=== PATIENT | male | born 1965 | race Caucasian/White ===

== ENCOUNTER → 2021-03-28 13:11 | Outpatient (CLI) | payer OTHER, SELFPAY ==
[2021-03-28 21:36] LABS: COVID19 - ORCAS (NP or Nasal) Negative (Negative)
== END ==
PROVIDERS: PCP Family Medicine; Visit Provider Family Medicine
DX: R50.9 Fever, unspecified (principal); Z20.822 Contact with and (suspected) exposure to COVID-19
CPT/HCPCS: U0003